=== PATIENT | female | born 1970 | race Caucasian/White ===

== ENCOUNTER 2017-01-07 08:16 | Emergency (ER) | payer MEDICAID ==
[~2017-01-07] VITALS: Wt 69.0 kg
[~2017-01-07 08:16] MED LIST: IBUP-727; METR70GE15 VAG; PARO10TA76; PROPANOLOL; [UNRECOGNIZED DRUG - OTHER]
--- NOTE | 2017-01-07 09:30 | ERD ---
ER Documentation Chief Complaint Date/Time DATE: 01/07/17 TIME: 09:15 Chief Complaint HEADACHE ON AND OFF UNCLEAR FOR HOW LONG HPI 46-year-old female presents emergency department for left-sided neck pain on range of motion that radiates to left head for about 3 years. Nontraumatic. Denies that this is the worst headache of her life, head trauma, neck stiffness , difficulty swallowing, throat pain, shoulder pain, chest pain, difficulty breathing, abdominal pain, back pain, nausea, vomiting, diarrhea, constipation, urinary symptoms, recent travel, recent exposure to any illness, numbness or tingling sensation, unilateral weakness/deficits, recent antibiotic use in the last 3 months, fever, chills. No known drug allergies. No past medical history. Surgical history of C- section 1 and appendectomy. 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 Occasional drinks alcoholic beverages. Denies smoking, use of illegal drugs. Denies family history of heart attack before the age of 50. Denies family history of stroke/aneurysm. LMP was August 2015. Has an IUD. A1. ROS All systems reviewed and are negative except as per history of present illness. Medications Home Meds Active Scripts Ibuprofen* (Ibuprofen*) 800 Mg Tablet, 800 MG PO Q8 Y for PAIN, #20 TAB Prov:RENNY CAPELLAN F 01/07/17 Cyclobenzaprine Hcl* (Cyclobenzaprine Hcl*) 10 Mg Tablet, 10 MG PO Q12 Y for MUSCLE SPASMS, #20 TAB Prov:TAMELAILABANYASMANIAR F 01/07/17 Metronidazole* (Metrogel* Vaginal) 0.75% -70 Gram Gel.w.appl, 1 APPFUL VAG BID, #1 TUB 0 Refills Prov:DEE DEE ORLANDO PA-C 09/03/15 Reported Medications Ibuprofen (Motrin) 600 Mg Tablet 02/01/10 Paroxetine Hcl* (Paroxetine*) 10 Mg Tablet 02/01/10 [Propanolol] No Conflict Check 02/01/10 [Migraine Medications] No Conflict Check 06/16/09 Allergies Allergies: Coded Allergies: No Known Allergies (Verified Allergy, Mild, 09/03/15) PMhx/Soc History of Surgery: Yes (APPY, ) Anesthesia Reaction: No Hx Neurological Disorder: No Hx Respiratory Disorders: No Hx Cardiac Disorders: No Hx Psychiatric Problems: No Hx Miscellaneous Medical Probl: Yes (HIGH CHOLESTEROL) Hx Alcohol Use: No Hx Substance Use: No Hx Tobacco Use: No Smoking Status: Never smoker Physical Exam Vitals Vital Signs Date Time Temp Pulse Resp B/P Pulse Ox O2 Delivery O2 Flow Rate FiO2 01/07/17 08:21 97.8 71 18 116/66 96 Physical Exam Const: [] Head: Atraumatic Eyes: Normal Conjunctiva ENT: Normal External Ears, Nose and Mouth. Neck: Full range of motion..~ No meningismus. Resp: Clear to auscultation bilaterally Cardio: Regular rate and rhythm, no murmurs Abd: Soft, non tender, non distended. Normal bowel sounds Skin: No petechiae or rashes Back: No midline or flank tenderness Ext: No cyanosis, or edema. mild supraspinatus tenderness to her left upper back. Pain on range of motion to the left side of the neck. No pain in eye movement extraocular movement of her eyes within normal limits. C-spine/T-spine /L-spine are in midline and nondisplaced no signs of fracture. Neur: Awake and alert x4. No neurological deficits. Romberg test is negative. Cranial nerves II through XII are intact. Psych: Normal Mood and Affect Results 24 hrs Current Medications Medications (Trade) Dose Ordered Sig/Haley Route PRN Reason Start Time Stop Time Status Last Admin Dose Admin Cyclobenzaprine HCl (Flexeril) 10 mg ONCE ONCE PO 01/07/17 10:00 01/07/17 10:01 DC 01/07/17 09:41 Procedures/MDM 46-year-old female presents emergency department for left-sided neck pain on range of motion that radiates to left head for about 3 years. Nontraumatic. No known drug allergies. No past medical history. Surgical history of C- section 1 and appendectomy. 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 Occasional drinks alcoholic beverages. Denies smoking, use of illegal drugs. LMP was August 2015. Has an IUD. A1. Physical examination revealed that patient has mild supraspinatus tenderness to her left upper back. Pain on range of motion to the left side of the neck. No pain in eye movement extraocular movement of her eyes within normal limits. C- spine/T-spine/L-spine are in midline and nondisplaced no signs of fracture. Prescribed Flexeril and Motrin. Patient agreed with the plan of care and stated that she will follow-up with her primary care physician the next 24-48 hours. Departure Diagnosis: Primary Impression: Headache Additional Impression: Muscle spasm Condition: Stable Additional Instructions: Follow-up with PCP in the next 24-48 hours. Come back in the emergency department for any new symptoms or any worsening symptoms. All questions and concerns are answered. Patient verbalized understanding and agreed with the plan of care. Hemodynamically stable on discharge. RENNY CAPELLAN Jan 07, 2017 09:30
[2017-01-07] MEDS ORDERED: CYCL-319 PO (09:32)
[2017-01-07] MEDS ORDERED: IBUP800T25 PO (09:33)
[2017-01-07] MEDS ORDERED: CYCLOBENZAPRINE 10 MG TAB PO ONE (10:00)
== END 2017-01-07 09:33 | disposition home or self-care (01) ==
LOC: FTE 08:16
DX: R51 Headache (principal); M62.830 Muscle spasm of back
CPT/HCPCS: Z7502; Z7610; 99283

== ENCOUNTER 2017-09-25 12:56 | Day surgery (SDC) | END 2017-09-25 22:25 | disposition home or self-care (01) ==

== ENCOUNTER 2018-02-26 15:09 | Emergency (ER) | END 2018-02-26 17:04 | disposition home or self-care (01) ==